=== PATIENT | male | born 2000 | race American Indian/Alaskan Native ===

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

== ENCOUNTER 2019-12-08 14:32 | Emergency (ER) | payer MEDICAID ==
[2019-12-08 14:51] VITALS: BP 121/66
[2019-12-08] MEDS ORDERED: ASPIRIN 325 MG TAB PO ONE (14:51)
== END 2019-12-08 15:21 ==
LOC: ED 14:32
DX: Z01.812 Encounter for preprocedural laboratory examination (principal); Z53.21 Procedure and treatment not carried out due to patient leaving prior to being seen by health care provider